=== PATIENT | male | born 2000 | race Caucasian/White ===

== ENCOUNTER 2021-03-04 00:34 | Emergency (ER) | payer MEDICAID ==
[~2021-03-04] VITALS: Ht 177.8 cm; Wt 68.1 kg
[2021-03-04] MEDS: naloxone 2mg/2ml inj ONE (00:54)
[2021-03-04 02:02] VITALS: BP 100/57
[2021-03-04] MEDS ORDERED: NALO4SPR BOTHNARES (02:56)
== END 2021-03-04 03:21 | disposition home or self-care (01) ==
LOC: EDBD 00:34 → ER 00:34
DX: T40.1X1A Poisoning by heroin, accidental (unintentional), initial encounter (principal); R41.82 Altered mental status, unspecified; Y92.89 Other specified places as the place of occurrence of the external cause
CPT/HCPCS: 99283; J2310

== ENCOUNTER 2025-02-21 16:03 | Emergency (ER) | payer MEDICAID ==
[~2025-02-21] VITALS: Ht 177.8 cm; Wt 64.2 kg
[~2025-02-21 16:03] MED LIST: NALO4SPR BOTHNARES
--- NOTE | 2025-02-21 18:29 | Physician Documentation ---
History of Present Illness ~ Chief Complaint: Back Pain Stated Complaint: MULTIPLE MED COMPLAINTS Time Seen by MD: 17:24 Primary Medical Doctor: NONE HPI 24-year-old male otherwise healthy presents to the emergency department for evaluation of the right wrist pain "Boxers fx"and lower back pain. He is very vague and scattered with a his chief complaints yet reports he has got a acute on chronic lower back pain without its specific injury. Reports the same about his right wrist. There was no obvious redness or obvious deformity to either area. Medication Reconciliation Allergies: Coded Allergies: No Known Allergies (Unverified , 03/04/21) Scheduled Naloxone HCl (Narcan), 1 SPRAYS BOTHNARES ONCE Review of Systems All Other Systems at this time: Reviewed and Negative Musculoskeletal: Reports: back pain, joint pain Physical Exam Physical Exam Vital Signs: RN Vital Signs have been reviewed: Yes, Temperature: 98.2, Source: Temporal, Heart Rate: 84, Respiratory Rate: 18, BP: 147/81, Pulse Oximetry: 94, Weight: 64.200 Oxygen Flow Rate: 0 General Appearance: alert, mild distress EENT: PERRL/EOMI Neck: non-tender Respiratory: no respiratory distress Chest: no accessory muscle use Cardiovascular: normal peripheral pulses Back R>L lumbar paraspionous Extremities: pain with movement, tenderness (+scaphoid ttp); No: joint effusion Sensory/Motor: sensation grossly intact, 5/5 strength all extrem. Neurologic: oriented x4 Psychiatric: normal mood/affect Skin: normal color Progress Results/Orders Results/Orders Orders - AMA PRITCHARD PAC Wrist, Complete (3vw Min) (02/21/25 18:15) Lumbar Spine Limited (02/21/25 18:15) Completed Orders - AMA PRITCHARD PAC Wrist, Complete (3vw Min) (02/21/25 18:15) Lumbar Spine Limited (02/21/25 18:15) Vital Signs 02/21/25 16:23 Temp 98.2 Pulse 84 Resp 18 B/P (MAP) 147/81 Pulse Ox 94 O2 Flow Rate 0 Medical Decision Making Additional information obtaine: N/A Findings Will screen with a x-ray imaging of the right wrist and lower back. X-ray imaging of the right wrist shows a scaphoid fracture (chronicity unknown) requiring immobilization and referral to Orthopedics. Lower back x-ray imaging negative for spondylolysis or spondylolisthesis or acute fracture. We will recommend NSAID therapy. Splint applied wishes clean dry and intact. Referral attached to orthopedist. Patient's safely discharged in the emergency department. Differential Dx:Considerations: Fracture, HNP, Musculoskeletal pain Departure Disposition: HOME / SELF CARE / HOMELESS Impression: Primary Impression: Scaphoid fracture of wrist Qualified Codes: S62.031A - Displaced fracture of proximal third of navicular [scaphoid] bone of right wrist, initial encounter for closed fracture Additional Impression: Low back pain Qualified Codes: M54.50 - Low back pain, unspecified Condition: Improved Discharge Instructions: Lumbosacral Strain Additional Instructions: You have a fracture of your right wrist and needs follow up with the orthopedist. Please follow up with the below listed orthopedist for an fracture management. X-rays of the lower backyard reassuring. Please take ibuprofen for discomfort. Referrals: NO PRIMARY CARE PROVIDER (PCP) PRESTON JAMES Jr., MD 5 days 24-year-old male right-hand dominant with a closed right scaphoid fracture. Thank you for evaluating. [facility] ED Education Educated: Patient Educated regarding: diagnosis, treatment, prognosis, need for follow up Signature Scribe Signature: . Attestation: . AMA PRITCHARD PAC Feb 21, 2025 18:29
--- NOTE | 2025-02-21 18:36 | RADIOLOGY REPORT ---
CLINICAL INDICATION: BACK PAIN TECHNIQUE: 2 radiographic views of the lumbar spine were obtained. Comparison: None FINDINGS/IMPRESSION: 5 [id number] lumbar-type vertebra. Mild straightening of the lumbar lordosis. Vertebral body heights are maintained. No evidence for acute traumatic fractures or spondylolisthesis.
--- NOTE | 2025-02-21 18:40 | RADIOLOGY REPORT ---
EXAM: DI WRIST, COMPLETE (3VW MIN) REASON FOR EXAM: WRIST PAIN RIGHT TECHNIQUE: PA, lateral, and oblique views of the right wrist are submitted for review. COMPARISON: None FINDINGS: There is acute, minimally displaced fracture through the neck of the scaphoid. There is no widening of the scapholunate interval. There is a well corticated ossific fragment adjacent to the ulnar styloid, likely related to remote trauma. There is moderate soft tissue swelling about the wrist. IMPRESSION: Acute, minimally displaced fracture through the neck of the scaphoid. Moderate soft tissue swelling.
[2025-02-21 19:18] VITALS: BP 148/82; PULSE 99; RESP 20; TEMP 98.6; O2SAT 99
== END 2025-02-21 19:19 | disposition home or self-care (01) ==
LOC: ER 16:04
DX: G89.29 Other chronic pain (principal); M54.50 Low back pain, unspecified; Z79.899 Other long term (current) drug therapy; S92.251A Displaced fracture of navicular [scaphoid] of right foot, initial encounter for closed fracture; X58.XXXA Exposure to other specified factors, initial encounter; Y93.89 Activity, other specified; Y92.89 Other specified places as the place of occurrence of the external cause; Y99.8 Other external cause status
CPT/HCPCS: 29125; 72100; 73110; 99284